=== PATIENT | female | born 1930 | race Caucasian/White ===

== ENCOUNTER → 2017-03-27 13:00 | Outpatient (CLI) | payer MEDICARE, BC ==
[2015-09-16 17:29] VITALS: BMI 24.6
[~2017-03-27 13:00] MED LIST: AMOX TR-K CLV 21 TAB PO; AMOXICILLIN875 MG PO; ANXIETY MEDS; ASPIRIN81 MG PO; BETAPACE 80 MG80 MG PO; CALCIUM LACTATE; CALCIUM LACTATE PO; CARDIO PLUS; CARDIO PLUS PO; CATAPLEX B PO; CELEXA20 MG PO; CEPACOL SORE T1 EAC3 PO; CHROMIUM PICO200 MC1; CHROMIUM PICO200 MC1 PO; CINNAMON500 MG PO; CIPRO250 MG PO; CYRUTA PLUS; CYRUTA PLUS PO; GAS-X180 MG PO; IPRAT-ALBUT 0.5-3 ML UPD; K-DUR20 MEQ PO; LASIX40 MG PO; LUBRICANT EYE D15 M2 LEFT EYE; MAGNESIUM; MAGNESIUM OXID250 MG PO; NIACINAMIDE; NYSTATIN ORAL SU5 ML PO; PLAVIX75 MG PO; PRILOSEC20 MG PO; PROBIOTIC1 EAC1 PO; ST. JOHN'S WOR150 MG PO; ULTRAM50 MG PO; ZINC-220220 MG; ZINC50 MG PO; [UNRECOGNIZED DRUG - CODE] PO; [UNRECOGNIZED DRUG - OTHER]; [UNRECOGNIZED DRUG - OTHER]; [UNRECOGNIZED DRUG - OTHER] PO
== END | disposition home or self-care (01) ==
LOC: D.MAMMO 03-24 16:00
DX: Z12.31 Encounter for screening mammogram for malignant neoplasm of breast (principal)

== ENCOUNTER 2018-03-21 07:52 | Outpatient (CLI) | payer MEDICARE, BC ==
[~2018-03-21] VITALS: Ht 157.5 cm; Wt 60.0 kg
--- NOTE | ~2018-03-21 | HEMODYNAMI ---
PATIENT:CHRISTIANE WALLACE MEDICAL RECORD: [id number] : 32 LOCATION:VANCE ADMISSION DATE: 03/21/18 Generatedon:03/21/201810:11 Patient name: CHRISTIANE WALLACE Patient #: [id number] SSN: : 1930 Date of study: 03/21/2018 Page: Of Hemodynamic Procedure Report Patient Data Patient Demographics Procedure consent was obtained First Name: CHRISTIANE Gender: Female Last Name: MADISON : 1930 [facility] Initial: ZOË Age: 87 year(s) Patient #: [id number] Race: Additional ID: [id number] Contact details [address]: [address] [place] [address] State: [place] City: [place] Zip code: [address] Past Medical History History of disease Date Diagnosis Comments CAD Arrhythmias - Supraventricular tachycardias->Paroxysmal AF Chronic lung disease->COPD Allergies Allergen Reaction Date Comments Reported Other allergy 12/19/2014 Sulfa, Neosporin Admission Admission Data Admission Date: 03/21/2018 Admission Time: 7:52 Procedure Procedure Types Cath Procedure Diagnostic Procedure LHC LHC w/Coronaries w/Grafts PCI Procedure Coronary Atherectomy Atherectomy w/PTCA Coronary Initial Procedure Description Procedure Date Procedure Date: 03/21/2018 Procedure Start Time: 9:42 Procedure End Time: 10:09 Procedure Staff Name Function Donaldo Haley MD Performing Physician Katiana Olivo RT Scrub Jemal Mendez RN Nurse Fadi Oneill RT Monitor Procedure Data Cath Procedure Fluoroscopy Diagnostic fluoroscopy Total fluoroscopy Time: 9.8 time: 9.8 min min Diagnostic fluoroscopy Total fluoroscopy dose: 873 dose: 873 mGy mGy Contrast Material Contrast Material Type Amount (ml) Isovue 300 135 Entry Location Entry Primary Successful Side Size Upsize Upsize Entry Closure Succes sful Closure Location (Fr) 1 (Fr) 2 (Fr) Remarks Device Remarks Femoral Right 5 Fr 6 Fr Exoseal artery Short Estimated blood loss: 10 ml Diagnostic catheters Device Type Used For End Catheter Placement MULTIPACK Pigtail 5 Fr Procedure catheter MULTIPACK JL 4.0 5Fr Procedure catheter MULTIPACK 3DRC 5Fr Procedure catheter DIAGNOSTIC AR 2 MOD 5 Fr Procedure catheter ([id number]) Procedure Complications No complications Procedure Medications Medication Administration Route Dosage Oxygen etCO2 Nasal cannula 2 l/min Heparin Flush Bag added to field 2 bags (1000units/500ml NS) 0.9% NaCl I.V. 100 ml/hr Fentanyl I.V. 25 mcg Versed I.V. 0.5 mg Fentanyl I.V. 25 mcg Versed I.V. 0.5 mg Heparin Bolus I.V. 4000 units Integrilin (Bolus I.V. 5.6 ml 2mg/ml) Integrilin (Bolus wasted 4.4 ml 2mg/ml) Plavix P.O. 600 mg Hemodynamics Rest Heart Rate: 61 (bpm) Pressure Samples Time Site Value (mmHg) Purpose Heart Use Rate(bpm) 9:46 AO 134/62(92) Snapshot 70 10:00 AO 115/49(77) Snapshot 69 Snapshots Pre Cath Intra NCS Post Cath Vital Signs Time Heart Resp SPO2 etCO2 NIBP (mmHg) Rhythm Pain Sedation Rate (ipm) (%) (mmHg) Status Level (bpm) 9:23:52 70 16 97 0 176/82(140) NSR 0 (11) 10(A) , No pain 9:28:17 68 16 100 21.8 165/76(133) NSR 0 (11) 10(A) , No pain 9:32:39 67 16 98 19.5 141/69(103) NSR 0 (11) 10(A) , No pain 9:36:53 68 17 99 15.7 136/67(108) NSR 0 (11) 9(A) , No pain 9:41:05 68 16 99 15.7 125/68(98) NSR 0 (11) 9(A) , No pain 9:45:11 70 17 100 24.8 144/77(109) NSR 0 (11) 9(A) , No pain 9:49:27 68 16 100 1.5 132/67(104) NSR 0 (11) 9(A) , No pain 9:53:38 69 16 100 1.5 137/68(113) NSR 0 (11) 9(A) , No pain 9:57:55 69 17 100 9 119/61(94) NSR 0 (11) 9(A) , No pain 10:02:03 70 16 100 15.7 127/66(95) NSR 0 (11) 9(A) , No pain 10:06:10 72 16 100 27 148/76(108) NSR 0 (11) 9(A) , No pain 10:08:56 71 17 100 17.3 141/71(113) NSR 0 (11) 9(A) , No pain Medications Time Medication Route Dose Verified Delivered Reason Notes Effectiveness by by 9:24:30 Oxygen etCO2 2 Donaldo Joaquin Per physician Nasal l/min Sudha Mendez RN cannula 9:24:37 Heparin Flush added 2 Donaldo Joaquin used for Bag to bags Sudha Mendez RN procedure (1000units/500ml field NS) 9:24:47 0.9% NaCl I.V. 100 Donaldo Joaquin Per physician ml/hr Sudha Mendez RN 9:32:18 Fentanyl I.V. 25 Donaldo Joaquin for sedation mcg Sudha Mendez RN 9:32:24 Versed I.V. 0.5 Donaldo Joaquin for sedation mg Sudha Mendez RN 9:42:45 Fentanyl I.V. 25 Donaldo Joaquin for sedation mcg Sudha Mendez RN 9:43:22 Versed I.V. 0.5 Donaldo Joaquin for sedation mg Sudha Mendez RN 9:55:01 Heparin Bolus I.V. 4000 Donaldo Joaquin for units Sudha Mendez RN anticoagulation 9:55:11 Integrilin I.V. 5.6 Donaldo Joaquin for (Bolus 2mg/ml) ml Sudha Mendez RN antiplatelet therapy 10:06:05 Integrilin wasted 4.4 Donaldo Joaquin for (Bolus 2mg/ml) ml Sudha Mendez RN antiplatelet therapy 10:07:53 Plavix P.O. 600 Donaldo Joaquin for mg Sudha Mendez RN antiplatelet therapy Procedure Log Time Note 9:00:14 Informed consent obtained and on chart 9:00:22 Diagnostic Cath Status : Elective 9:01:08 Jemal Mendez RN sent for patient. Start room use. 9:01:08 Time tracking: Regular hours (M-F 7:00 - 5:00) 9:01:14 Plan of Care:Hemodynamics will remain stable., Cardiac rhythm will remain stable., Comfort level will be maintained., Respiratory function will remain adequate., Patient/ family verbilizes understanding of procedure., Procedure tolerated without complication., Recovers from procedure without complications.. 9:16:15 Patient received from Pre/Post Procedure Room to CCL 2 Alert and oriented. Tansferred to table in Supine position. 9:16:16 Warm blankets applied, and melvin hugger turned on for patient comfort. 9:16:17 Correct patient and procedure confirmed by team. 9:16:17 ECG and BP/O2 sat monitors applied to patient. 9:21:34 Vital chart was started 9:21:35 Baseline sample Acquired. 9:21:40 Rhythm: sinus rhythm 9:21:42 Full Disclosure recording started 9:21:46 H&P Date Dictated: 03/21/2018 Within 30 days and on chart., H&P Addendum completed by physician on day of procedure. (MUST COMPLETE FOR ALL OUTPATIENTS). 9:21:47 Pre-procedure instructions explained to patient. 9:21:48 Pre-op teaching completed and patient verbalized understanding. 9:21:49 Patient NPO since Midnight. 9:21:51 Is the patient allergic to Iodine/contrast media? No. 9:21:53 Was the patient premedicated? No 9:21:55 Is patient on blood thinner?No 9:21:56 Patient diabetic? No. 9:21:59 Previous problem with sedation/anesthesia? No ? 9:22:02 Snore? No 9:22:03 Sleep apnea? No 9:22:04 Deviated septum? No 9:22:05 Opens mouth fully? Yes 9:22:06 Sticks out tongue? Yes 9:22:07 Airway obstruction? No ? 9:22:21 Dentures? Yes upper in tight 9:22:25 Pre procedure: right dorsailis pedis pulse 1+ Palpable, but thready & weak; easily obliterated 9:22:27 Pre procedure: left dorsailis pedis pulse 1+ Palpable, but thready & weak; easily obliterated 9:22:29 Patient pain scale 0/10 ?. 9:22:34 IV patent on arrival in left hand with 0.9% NaCl at KVO. 9:22:36 Lab results completed and on chart. 9:22:41 Right groin area was prepped with chlora-prep and draped in sterile fashion 9::42 Alarms reviewed by R. N. 9::42 Sharps counted by scrub and verified by R.N. 9:23:48 Baseline sample Acquired. 9:23:59 Family in patients room. 9:24:30 Oxygen 2 l/min etCO2 Nasal cannula was administered by Jemal Mendez RN; Per physician; 9:24:37 Heparin Flush Bag (1000units/500ml NS) 2 bags added to field was administered by Jemal Mendez RN; used for procedure; 9:24:47 0.9% NaCl 100 ml/hr I.V. was administered by Jemal Mendez RN; Per physician; 9:31:32 Use device set Femoral Dx 9:31:34 Tegaderm 4 x 4 ([id number]) opened to sterile field. 9:31:36 ACIST Manifold (78639) opened to sterile field. 9:31:36 ACIST Hand Control (60872) opened to sterile field. 9:31:38 ACIST Syringe (21321) opened to sterile field. 9:31:39 Bag Decanter (2002S) opened to sterile field. 9:31:39 Medline Cath Pack ([id number]) opened to sterile field. 9:31:40 DIAGNOSTIC WIRE .035 260cm J wire (931429) opened to sterile field. 9:31:41 DIAGNOSTIC Multipack 5Fr catheter set (BS3944) opened to sterile field. 9:31:42 SHEATH Prelude 5Fr 0.035 (XDC-6U-61-035) opened to sterile field. 9:31:51 --------ALL STOP TIME OUT------ 9:31:51 Final Timeout: patient, procedure, and site verified with staff and physician. All members of the team are in agreement. 9:31:53 Right groin site verified by team. 9:31:56 Physical assessment completed. ASA score P 2 - A patient with mild systemic disease as per Donaldo Haley MD. ::59 Sedation plan: IV Moderate Sedation Medication:Versed, Fentanyl 9:32:18 Fentanyl 25 mcg I.V. was administered by Jemal Mendez RN; for sedation; 9:32:24 Versed 0.5 mg I.V. was administered by Jemal Mendez RN; for sedation; 9:35:31 Zero performed for pressure channel P1 9:42:11 Procedure started. 9:42:15 Local anesthetic to right femoral artery with Lidocaine 2% by Donaldo Haley MD.INITIAL ACCESS ONLY 9:42:45 Fentanyl 25 mcg I.V. was administered by Jemal Mendez RN; for sedation; 9:43:09 A 5 Fr sheath was inserted into the Right Femoral artery 9:43:22 Versed 0.5 mg I.V. was administered by Jemal Mendez RN; for sedation; 9:43:31 A MULTIPACK Pigtail 5 Fr catheter was advanced over the wire and used for Procedure. 9:44:27 LV angiography performed. 9:44:29 LV gram done using [place] 9:44:34 EF : 55 % 9:44:41 Injector settings: Ml/sec: 10, Volume: 20, 9:44:44 Catheter removed. 9:44:48 A MULTIPACK JL 4.0 5Fr catheter was advanced over the wire and used for Procedure. 9:46:30 LCA angiography performed. 9:48:00 Catheter removed. 9:48:05 A MULTIPACK 3DRC 5Fr catheter was advanced over the wire and used for Procedure. 9:49:20 RCA angiography performed. 9:49:46 SVG to Diag angiography performed. 9:49:49 SVG to OM occluded. 9:50:47 Catheter removed. 9:50:51 A DIAGNOSTIC AR 2 MOD 5 Fr catheter ([id number]) was advanced over the wire and used for Procedure. 9:51:02 RCA angiography performed. 9:51:10 Catheter removed. 9:52:21 Use device set TAU PCI 9:52:27 SHEATH Prelude 6Fr 0.035 (LNW-0A-14-035) opened to sterile field. 9:52:30 GUIDE 6FR EBU 3.5 catheter ([id number]) opened to sterile field. 9:52:33 INFLATOR Merit BasixCompak (KX4319) opened to sterile field. 9:52:37 CHOICE PT Extra Support 182cm wire ([id number]) opened to sterile field. 9:53:00 Sheath upsized to a 6 Fr Short. 9:53:09 6 Fr EBU 3.5 guide catheter was inserted over the wire 9:55:01 Heparin Bolus 4000 units I.V. was administered by Jemal Mendez RN; for anticoagulation; 9:55:03 CPTXS wire advanced. 9:55:09 Wire advanced across lesion. 9:55:11 Integrilin (Bolus 2mg/ml) 5.6 ml I.V. was administered by Jemal Mendez RN; for antiplatelet therapy; 9:55:39 LASER ELCA 0.9 Rx atherectomy catheter (873247) opened to sterile field. 9:57:20 Laser catheter advanced. 9:57:24 Laser pass to OM1 with Fluence of 80 and Rate of 40. 9:59:57 Multiple passes made to OM. 10:00:04 Laser catheter removed. 10:01:35 Inflate balloon Inflation number: 1 A EUPHORA 2.0 x 20 Balloon ([id number]) was prepped and advanced across the Mid CX, then inflated to 19 MILAGROS for 0:10 (min:sec). 10:01:57 Multiple inflations made at 21 Atms. 10:02:56 Balloon removed over the wire. 10:03:10 Inflate balloon Inflation number: 2 A EUPHORA 2.5 x 30 Balloon ([id number]) was prepped and advanced across the Mid CX, then inflated to 21 MILAGROS for 0:10 (min:sec). 10:03:24 Multiple inflations made at 21 Atms. 10:03:46 Laser total pulses delivered: 1222 10:03:51 Laser total treatment time: 0 minutes 30 seconds 10:04:06 Balloon removed over the wire. 10:04:12 EXOSEAL 6Fr (EX600) opened to sterile field. 10:04:38 Wire removed. 10:04:39 Guide catheter removed. 10:04:43 Sheath removed intact; hemostasis achieved with Exoseal to the Right Femoral artery. 10:05:15 Procedure ended.(Physican Out) 10:06:05 Integrilin (Bolus 2mg/ml) 4.4 ml wasted was administered by Jemal Mendez RN; for antiplatelet therapy; 10:06:44 Fluoroscopy time 09.80 minutes. 10:06:48 Fluoroscopy dose: 873 mGy 10:06:48 Flurop Dose total: 873 10:06:53 Contrast amount:Isovue 300 135ml. 10:06:54 Sharps counted by scrub and verified by R.N. 10:06:55 Insertion/operative site no bleeding no hematoma. 10:06:58 Post-op/insertion site Right Femoral artery dressed using a 4 x 4 and Tegaderm. 10:06:59 Post Procedure Pulses reassessed and unchanged 10:07:02 Post-procedure physical assessment completed. ASA score P 2 - A patient with mild systemic disease as per Donaldo Haley MD. 10:07:05 Post procedure rhythm: unchanged. 10:07:10 Estimated blood loss: 10 ml 10:07:12 Post procedure instruction explained to patient.Patient verbalizes understanding. 10:07:13 Patient needs reinforcement of post procedure teaching. 10:07:53 Plavix 600 mg P.O. was administered by Jemal Mendez RN; for antiplatelet therapy; 10:08:36 Procedure type changed to Cath procedure, Diagnostic procedure, LHC, LHC w/Coronaries w/Grafts, PCI procedure, Coronary Atherectomy, Atherectomy w/PTCA Coronary Initial 10:08:39 Procedure Complication : No complications 10:09:11 Procedure and supply charges have been captured, reviewed, submitted and are correct. 10:09:12 Vital chart was stopped 10:09:12 See physician's report for complete and final results. 10:09:16 Report given to Pre/Post Procedure Room. 10:09:18 Patient transfered to Pre/Post Procedure Room with Stretcher. 10:09:22 Procedure ended. 10:09:22 Full Disclosure recording stopped 10:11:00 End room use (Document Last) Intervention Summary Intervention Notes Time ActionType Lesion and Equipment Action# Pressure Duration Attributes Used 10:01:35 Inflate Mid CX EUPHORA 1 19 00:10 balloon 2.0 x 20 Balloon ([id number]) 10:03:10 Inflate Mid CX EUPHORA 2 21 00:10 balloon 2.5 x 30 Balloon ([id number]) Device Usage Item Name Manufacture Quantity Catalog Number Hospital Part Current Minimal Lot# / Charge Number Stock Stock Serial# Code Tegaderm 4 x 4 3M 1 1626W [id number] [id number] [id number] 5 (1626W) ACIST Manifold Acist 1 38679 351229 492363 058554 5 (39780) Medical [employer] Inc ACIST Hand Acist 1 03441 816708 064340 001021 5 Control (68956) Medical Systems Inc ACIST Syringe Acist 1 66946 052499 380226 904292 20 (89103) Medical Systems Inc Bag Decanter Microtek 1 2001S 977764 83121 867846 5 (2001S) Medical Inc. Medline Cath Cardinal 1 [id number] 969365 84477 782019 5 Pack Health ([id number]) DIAGNOSTIC WIRE [place] 1 002417 771886 878513 838506 30 .035 260cm J wire (298119) DIAGNOSTIC Cardinal 1 UM1026 489419 19514 377439 30 Multipack 5Fr Health catheter set (RJ3721) SHEATH Prelude Merit 1 NBG-2H-60-035 250768 966609 896847 5 5Fr 0.035 Medical (ZAF-7Y-29-035) MULTIPACK Cardinal 1 052623 5 Pigtail 5 Fr Health catheter MULTIPACK JL Cardinal 1 528384 5 4.0 5Fr Health catheter MULTIPACK 3DRC Cardinal 1 449052 5 5Fr catheter Health DIAGNOSTIC AR 2 Cardinal 1 [id number] 976038 923306 479924 20 MOD 5 Fr Health catheter ([id number]) SHEATH Prelude Merit 1 XYX-1V-20-35 835589 6934849 201374 5 6Fr 0.035 Medical (TAW-3Y-79-035) GUIDE 6FR EBU Medtronic 1 [id number] 049298 13209 586909 3 3.5 catheter (TG3QPA96) INFLATOR Merit Merit 1 GM4172 293125 404819 165738 15 [facility] (BZ5602) CHOICE PT Extra [place] 1 [id number] 762770 321395 013820 5 Support 182cm Scientific wire (2620428T4) LASER ELCA 0.9 Jah 1 110-004 189868 731463 722226 5 Rx atherectomy Healthcare catheter (518189) (525651) EUPHORA 2.0 x Medtronic 1 [id number] 234338 803315 715985 5 [id number] 20 Balloon ([id number]) EUPHORA 2.5 x Medtronic 1 [id number] 596942 936184 374059 5 [id number] 30 Balloon ([id number]) EXOSEAL 6Fr Cardinal 1 EX600 091549 346471 775567 10 (EX600) Health Signature Audit [place] Stage Time Signature Unsigned Intra-Procedure 03/21/2018 Fadi Oneill 10:11:15 AM RT(R) Signatures Monitor : Fadi Oneill RT Signature : Date : Time : [address] [address]
--- NOTE | ~2018-03-21 | OP ---
PATIENT NAME: CHRISTIANE WALLACE MEDICAL RECORD: [id number] :32 LOCATION:D.CAT ADMISSION DATE: SURGEON: NATHALIA CAMPBELL MD DATE OF OPERATION: 03/21/2018 DATE OF SERVICE: 03/21/2018 PROCEDURES: 1. Laser atherectomy of left circumflex. 2. PTCA of left circumflex. 3. Left heart catheterization. 4. Selective coronary angiography. 5. Left ventriculogram. 6. Vein graft angiography. INDICATION: Unstable angina and coronary artery disease. PROCEDURE IN DETAIL: After informed consent was obtained and after a detailed explanation of risks, benefits as well as alternative therapies, the patient elected to proceed with angiogram and angioplasty. The right femoral area was prepped and draped in normal sterile fashion. The right femoral artery was cannulated via modified Seldinger technique with placement of 6-Nepalese sheath. All catheters exchanged through this sheath. FINDINGS: Left ventriculogram was performed in standard 30-degree [place] view, reveals good cardiac wall motion throughout all segments. Overall ejection fraction estimated at 60%. SELECTIVE CORONARY ANGIOGRAPHY: 1. The left main has no significant angiographic disease. 2. Left anterior descending has mild irregularities, but no flow-limiting stenosis. The diagonal has 100% stenosis. 3. Vein graft to the diagonal is widely patent. 4. Left circumflex has previously placed stents. There are multiple areas of in-stent restenosis up to 90% throughout the circumflex. 5. Right coronary is 100% occluded. 6. Vein graft to the right coronary is widely patent. Distal right coronary is widely patent. LASER ATHERECTOMY, PTCA OF THE LEFT CIRCUMFLEX: The 0.9 laser catheter was used. Multiple passes were made. Ballooning was undertaken with a 2.0 and 2.5 balloon. Result was 0% residual stenosis. OVERALL IMPRESSION: Successful laser atherectomy, percutaneous transluminal coronary angioplasty of the in-stent restenosis of the left circumflex going from 90% initial stenosis to 0% residual. 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 [address] [place] [address]
[2018-03-21] MEDS ORDERED: CIPRO250 MG PO (08:31)
[2018-03-21 08:45] VITALS: BP 140/61; Ht 157.5 cm; Wt 60.0 kg
[2018-03-21 08:54] LABS: BASOPHILS 0.5 % (0-2); EOSINOPHILS 4.2 % (0-7); HEMOGLOBIN 12.1 g/dL (12-16); IMMATURE GRANULOCYTES 0.3 % (0-5); MCH 28.5 pg (26.0-34.0); MCHC 32.7 g/dL (31.0-37.0); MCV 87.1 fL (80.0-100.0); MEAN PLATELET VOLUME 9.4 fL (7.4-10.4); RBC 4.25 10x6/uL (4.00-5.40); RDW 13.5 % (11.5-14.5); WBC 3.8 10x3/uL (4.8-10.8)
[2018-03-21 08:55] LABS: PLATELET COUNT 173 10x3/uL (130-400)
[2018-03-21 09:05] LABS: ANION GAP 13.1 mmol/L (8-16); CALCIUM 9.3 mg/dL (8.5-10.1); CARBON DIOXIDE 29.1 mmol/L (21.0-32.0); POTASSIUM - SERUM 3.2 mmol/L (3.5-5.1)
[2018-03-21] MEDS ORDERED: PLAVIX75 MG PO (10:31)
== END 2018-03-21 14:30 ==
LOC: D.CATH 07:52
PROVIDERS: Internal Medicine Interventional Cardiology
DX: I25.110 Atherosclerotic heart disease of native coronary artery with unstable angina pectoris (principal); T82.855A Stenosis of coronary artery stent, initial encounter